=== PATIENT | female | born 1985 | race Caucasian/White ===

== ENCOUNTER 2024-09-10 09:29 | Emergency (ER) | payer MEDICAID ==
[~2024-09-10] VITALS: Ht 165.1 cm; Wt 63.0 kg
[2024-09-10 09:38] VITALS: BP 127/83; PULSE 90; RESP 18; TEMP 36.6; O2SAT 98
[2024-09-10] MEDS ORDERED: AMOX1TAB16 MT (10:21)
[2024-09-10] MEDS ORDERED: OFLO5DRO4 LEFT EAR (10:21)
== END 2024-09-10 10:37 | disposition home or self-care (01) ==
LOC: ER 09:29
DX: H60.92 Unspecified otitis externa, left ear (principal)
CPT/HCPCS: 81025; 99283